=== PATIENT | female | born 1990 | race Caucasian/White ===

== ENCOUNTER → 2019-07-26 | Outpatient (CLI) | payer BC ==
--- NOTE | 2019-07-26 15:42 | KCIC ---
EXAM: Pelvic sonogram. HISTORY: Pain. TECHNIQUE: Sonographic imaging of the pelvis was performed. COMPARISON: None. FINDINGS: The uterus measures 9.7 x 5.0 x 3.5 cm. The endometrial stripe measures 4.2 mm in maximum thickness. The ovaries are normal in size and demonstrate normal blood flow. There is a 2.1 cm dominant right ovarian follicle/follicular cyst. There is no pelvic free fluid. IMPRESSION: 1. 2.1 cm dominant right ovarian follicle/follicular cyst. 2. Otherwise, unremarkable pelvic sonogram. Electronically signed by: Prachi Kennedy MD (07/26/2019 3:40 PM) [place] [id number]
== END | disposition home or self-care (01) ==
LOC: KCIC US 14:45
PROVIDERS: ATTEND Nurse Practitioner Women's Health
DX: N83.01 Follicular cyst of right ovary (principal)
CPT/HCPCS: 76856